=== PATIENT | male | born 2000 | race African-American/Black ===

== ENCOUNTER 2021-01-15 12:10 | Emergency (ER) | payer BC ==
[~2021-01-15] VITALS: Ht 160 cm; Wt 68.0 kg
[2021-01-15] MEDS ORDERED: DOXYCYCLINE 10100 MG PO ×2 (14:38→14:44)
[2021-01-15] MEDS ORDERED: ULTRAM 50MG TAB50 MG PO ×2 (14:38→14:44)
[2021-01-15 14:45] VITALS: BP 117/63
== END 2021-01-15 14:45 | disposition home or self-care (01) ==
LOC: ER 12:10
DX: S81.812A Laceration without foreign body, left lower leg, initial encounter (principal); W13.0XXA Fall from, out of or through balcony, initial encounter; Y93.89 Activity, other specified; Y92.89 Other specified places as the place of occurrence of the external cause; Y99.9 Unspecified external cause status

== ENCOUNTER 2021-01-17 14:34 | Emergency (ER) | payer BC ==
[~2021-01-17] VITALS: Ht 160 cm; Wt 59.0 kg
[~2021-01-17 14:34] MED LIST: DOXYCYCLINE 10100 MG PO; ULTRAM 50MG TAB50 MG PO
[2021-01-17 17:35] VITALS: BP 117/71
== END 2021-01-17 17:40 | disposition home or self-care (01) ==
LOC: ER 14:34
DX: S81.812D Laceration without foreign body, left lower leg, subsequent encounter (principal); W13.0XXD Fall from, out of or through balcony, subsequent encounter